=== PATIENT | male | born 1945 | race Caucasian/White ===

== ENCOUNTER 2017-03-27 11:01 | Day surgery (SDC) | payer OTHER, MEDICARE ==
[~2017-03-27] VITALS: Ht 180.3 cm; Wt 79.4 kg
[~2017-03-27 11:01] MED LIST: ARMO120T PO; ARMO90TA PO; LYRI150C PO
[2017-03-27] MEDS ORDERED: EPINEPHrine HCL (1:1000) 30 MG/30 ML VIAL ONE (11:46)
[2017-03-27] MEDS ORDERED: PROPOFOL 200 MG/20 ML AMP IV ONE (12:00)
[2017-03-27] MEDS ORDERED: LACTATED RINGER'S 1000 ML INJ 2,000 ML IV ONE (12:00)
[2017-03-27] MEDS ORDERED: MIDAZOLAM HCL 2 MG/2 ML VIAL IV ONE (12:00)
[2017-03-27] MEDS ORDERED: SODIUM CHLORID 0.9% 500 ML IV PRN (12:00)
[2017-03-27] MEDS ORDERED: GLYCOPYRROLATE 1 MG/5 ML SYRINGE IV PUSH ONE (12:00)
[2017-03-27] MEDS ORDERED: CHLORHEXIDINE GLUCONATE 2 % 1 PACK (2 CLOTHS) TOPICAL PRN (12:00)
[2017-03-27] MEDS ORDERED: INSULIN HUMAN REGULAR 1,000 UNITS/10 ML VIAL SQ PRN (12:00)
[2017-03-27] MEDS ORDERED: ceFAZolin 2 GM PREMIX 50 ML IV SCH (12:00)
[2017-03-27] MEDS ORDERED: NEOSTIGMINE 3 MG/3 ML SYR IV ONE (12:00)
[2017-03-27] MEDS ORDERED: POVIDONE IODINE 5% (ANTISEPSIS KIT) 4 APPLICATIONS EACH NARE PRN (12:00)
[2017-03-27] MEDS ORDERED: ROCURONIUM INJ 50 MG/5 ML SYRINGE IV PUSH ONE (12:00)
[2017-03-27] MEDS ORDERED: ePHEDrine/NS 25 MG/5 ML SYR IV ONE (12:00)
[2017-03-27] MEDS ORDERED: VANCOMYCIN 1250 MG/NS 250 ML (for 70-84 kg) IV SCH ×2 (12:00)
[2017-03-27] MEDS ORDERED: LACTATED RINGER'S 1000 ML IV PRN (12:00)
[2017-03-27] MEDS ORDERED: LIDOCAINE HCL 1% PF 5 ML AMPULE OTHER ONE (12:00)
[2017-03-27] MEDS ORDERED: METOPROLOL TARTRATE 25 MG TAB PO PRN (12:00)
[2017-03-27] MEDS ORDERED: POVIDONE IODINE 7.5% SCRUB 118 ML BOTTLE TOPICAL SCH (12:00)
[2017-03-27] MEDS ORDERED: ROPIVACAINE 0.5% PF INJ 30 ML VIAL ONE (12:43)
--- NOTE | 2017-03-27 14:32 | EKG ---
Date Performed: 03/27/2017 Time Performed: 11:23:46 PTAGE: 71 years EKG: SINUS BRADYCARDIA BORDERLINE ECG PREVIOUS TRACING : 04/15/2014 10.35 Compared to prior tracing no significant change DOCTOR: Zeke Wu Interpretating Date/Time 03/27/2017 14:31:20
[2017-03-27] MEDS ORDERED: DO NOT ADM ANY ANTICOAGULANT DRUGS PRN (15:55)
[2017-03-27] MEDS ORDERED: SODIUM CHLOR 0.9% 1000 ML INJ 1,000 ML IV SCH (16:25)
[2017-03-27] MEDS ORDERED: HYDR-3580 PO (16:28)
[2017-03-27] MEDS ORDERED: ONDANSETRON HCL 4 MG/2 ML VIAL IV PUSH PRN (16:30)
[2017-03-27] MEDS ORDERED: ACETAMINOPHEN/HYDROcodone 325 MG/5 MG TAB PO PRN ×2 (16:30)
[2017-03-27] MEDS ORDERED: MORPHINE SULFATE 4 MG/ML INJ IV PUSH PRN (16:30)
[2017-03-27] MEDS ORDERED: SODIUM CHLORIDE 0.9% FLUSH 5 ML FLUSH IVF PRN (16:30)
[2017-03-27 17:40] VITALS: BP 154/76; PULSE 54; RESP 19; TEMP 97.4; O2SAT 97
[2017-03-27] MEDS ORDERED: SODIUM CHLORIDE 0.9% FLUSH 5 ML FLUSH IVF SCH (21:00)
--- NOTE | 2017-04-09 11:28 | MP ---
cc: ROGERFLAKITA DATE OF 1945 DATE OF SURGERY 03/27/2017 PREOPERATIVE DIAGNOSIS Rotator cuff tear of the right shoulder. POSTOPERATIVE DIAGNOSIS Rotator cuff tear of the right shoulder. OPERATIVE PROCEDURE Arthroscopic surgery right shoulder consisting of the following - 1. Debridement of the joint including biceps tenotomy. 2. Arthroscopic the rotator cuff repair. 3. Arthroscopic modified Ese procedure (scope planing lateral end clavicle). SURGEON Dr. Jacobson ANESTHESIA General. TECHNIQUE After induction of general anesthesia and scalene block, the patient was placed the right lateral position, supported with truedashet hip positioners with the patient inclined 20 degrees towards the surgeon. The legs were properly protected and secured and padded. The left upper extremity properly positioned and axillary roll placed. The right arm was placed in traction with 10 pounds weight with the Active Flex arm positioner in about 30 degrees of abduction. The right shoulder girdle was thoroughly prepped with alcohol and ChloraPrep and draped in routine fashion including sterile traction device on the arm. Bony prominences were marked. The joint was entered through the posterior soft spot and systematic visualization with the joint was carried out. The cartilage on the head of the humerus and glenoid appeared satisfactory. There is significant tearing of the biceps tendon in its intraarticular portion and the anterior labrum and synovitis. An anterior-superior lateral portal was then established using a spinal needle first and then a probe was brought in and the rotator cuff was probed. There was full-thickness tear of the anterior portion of the rotator cuff probably involving most of the supraspinatus. Infraspinatus and teres minor attachments looked normal. Using a basket forceps, the biceps tenotomy was carried out as well as debridement of the joint using the 4.5 mm open-ended cutter. There was tearing of the deep layer of the subscapularis but most of the subscapularis attachment was intact. A 70-degree scope was used to visualize this. After this, the surgery was changed to the subacromial location. The arthroscope was changed and then a mid-lateral portal established. Acromioplasty and core planing of the lateral end of the clavicle were carried out. The coracoacromial ligament was recessed. There was fairly significant bursitis and the bursa was resected getting good visualization of the torn supraspinatus which was retracted to about 1 cm past the lateral margin of the articular surface. The bony bump over the bone of the greater tuberosity distal to the articular surface was gently smoothed out with a barrel velma exposing bone. It was decided to the repair this tear with the [employer] SpeedBridge system. After a using a spinal needle, a portal was established for introduction of the anchors and two SpeedBridge anchors were then introduced, one in the anterior portion of the tear and one in the posterior portion of the tear, a few mm lateral to the articular margin. These sutures were then passed through a good substance of the supraspinatus with the Scorpion punch and these sutures were brought out and then pulled through the anterior lateral portal which was established to get access to the subacromial space. The sutures were then crossed over and a second row established with the knotless anchors of the SpeedBridge system getting good fixation and coaptation of the rotator cuff repair. The residual holding sutures were all removed. Final repair looks good. The subacromial space was once again examined and further debridement of the area was carried out. Instrumentation was withdrawn, followed by suture of the portals with interrupted 3-0 nylon vertical mattress. Dressings applied with Xeroform, 4x4s, ABD, Medipore tape. An UltraSling was then applied holding the arm in slight abduction. The patient was transferred to the recovery room in satisfactory condition. The patient tolerated the procedure well. TRANSFUSIONS AND COMPLICATIONS None. POSTOPERATIVE CONDITION Satisfactory. PROGNOSIS Guarded to good. MD DEJUAN Arnold/JESUS /4:00 PM /11:05 AM
== END 2017-03-27 17:40 | disposition home or self-care (01) ==
LOC: HSDC 11:01
PROVIDERS: ATTEND Orthopaedic Surgery
DX: M75.121 Complete rotator cuff tear or rupture of right shoulder, not specified as traumatic (principal); M75.41 Impingement syndrome of right shoulder; R00.1 Bradycardia, unspecified; E03.9 Hypothyroidism, unspecified; E78.00 Pure hypercholesterolemia, unspecified; M79.7 Fibromyalgia; Z01.810 Encounter for preprocedural cardiovascular examination
CPT/HCPCS: 01630; 29824; 29827; 29828; 93005; C1713; J0171; J0690; J2250; J2710; J2795; J3010; J3370; J7050; J7120